=== PATIENT | male | born 1955 | race Caucasian/White ===

== ENCOUNTER 2016-10-12 16:53 | Inpatient (IN) | payer BC ==
[2016-10-12] MEDS ORDERED: Aspirin Low Dose CHEW TAB* 81 MG PO ONE (19:24)
--- NOTE | 2016-10-12 20:09 | RAD ---
INDICATION: Chest pain COMPARISON: May 06, 2016 TECHNIQUE: PA and lateral dual-energy views were obtained. FINDINGS: Bones/Soft Tissues: There are no acute bony findings. Cardiomediastinal: The cardiomediastinal silhouette is normal. Lungs: There are no infiltrates. Pleura: There are no pleural effusions. Other: None IMPRESSION: NO ACTIVE DISEASE.
[2016-10-12 20:14] LABS: Hematocrit 44 % (42-52); Hemoglobin 14.8 g/dl (14.0-18.0); Mean Corpuscular HGB Conc 33 g/dl (31-36); Mean Corpuscular Hemoglobin 30 pg (27-31); Mean Corpuscular Volume 90 fL (80-94); Mean Platelet Volume 7 um3 (7.4-10.4); Red Blood Count 4.89 10^6/ul (4.0-5.4); Red Cell Distribution Width 13 % (10.5-15); White Blood Count 9.2 10^3/ul (3.5-10.8)
[2016-10-12 20:30] LABS: Albumin 4.4 g/dL (3.2-5.2); BUN/Creatinine Ratio 40.5 (8-20); Calcium 9.6 mg/dL (8.6-10.3); EGFR African American 139.2 (>60); EGFR Non-African American 108.3 (>60); Globulin 2.8 g/dL (2-4); Magnesium 2.4 mg/dL (1.9-2.7); Potassium 4.4 mmol/L (3.5-5.0); Total Bilirubin 0.7 mg/dL (0.2-1.0); Total Protein 7.2 g/dL (6.4-8.9)
[2016-10-12 20:31] LABS: Troponin I 0.01 ng/mL (<0.04)
--- NOTE | 2016-10-12 20:52 | ED ---
Petr Powell Erika, scribed for Johnathon Jennings MD on 10/12/16 at 1926 . HPI Chest Pain - HPI Summary HPI Summary: Patient is a 60-year-old male presenting to the ED with a CC of intermittent episodes of chest pain. Patient reports he had cardiac stents placed in April 2016. On 10/02/2016, patient woke up at 03:00 for work and had intense chest pain and SOB. He had another similar episode on 10/05 while at work at [employer]. On 10/06, patient had a stress test, and Dr. Lin scheduled him for a cardiac catheterization on 10/21 based on the results. Since the stress test, episodes of chest pain and SOB have been more frequent. Each episode lasts about 3 minutes. Today, patient had two episodes - one at 03:00, and one at 15: 00 - he usually takes his medications at 04:00 and 16:00, but each time took them an hour early due to the pain. - History of Current Complaint Chief Complaint: EDChestPainROMI Time Seen by Provider: 10/12/16 19:19 Hx Obtained From: Patient Onset/Duration: Started Weeks Ago, Atraumatic, Still Present Timing: Intermittent - lasting about 3 minutes each Initial Severity: Moderate Current Severity: None Pain Intensity: 0 Pain Scale Used: 0-10 Numeric Alleviating Factor(s): Spontaneous Resolution Associated Signs and Symptoms: Positive: Shortness of Breath - Allergy/Home Medications Allergies/Adverse Reactions: Allergies Allergy/AdvReac Type Severity Reaction Status Date / Time No Known Allergies Allergy Verified 10/12/16 16:55 Home Medications: Home Medications Metoprolol Tartrate TAB* [Lopressor TAB*] 75 mg PO Q12H 10/12/16 [History Confirmed 10/12/16] PMH/Surg Hx/FS Hx/Imm Hx Endocrine/Hematology History: Denies: Hx Diabetes Cardiovascular History: Reports: Hx Angina, Hx Coronary Artery Disease, Hx Hypercholesterolemia, Hx Hypertension, Hx Myocardial Infarction - April 2016 Denies: Hx Aneurysm, Hx Angioplasty, Hx Valvular Heart Disease Respiratory History: Denies: Hx Asthma, Hx Chronic Obstructive Pulmonary Disease (COPD) GI History: Denies: Hx Cirrhosis History: Denies: Hx Acute Renal Failure, Hx Chronic Renal Failure, Hx Dialysis Sensory History: Reports: Hx Contacts or Glasses Opthamlomology History: Reports: Hx Contacts or Glasses Infectious Disease History: No Infectious Disease History: Denies: Traveled Outside the [place] in Last 30 Days - Family History Known Family History: Negative: Cardiac Disease - Social History Alcohol Use: Occasionally Hx Substance Use: No Substance Use Type: Reports: None Hx Tobacco Use: Yes Smoking Status (MU): Former Smoker Review of Systems Positive: Chest Pain Positive: Shortness Of Breath All Other Systems Reviewed And Are Negative: Yes Physical Exam Triage Information Reviewed: Yes Vital Signs On Initial Exam: Initial Vitals Temp Pulse Resp BP Pulse Ox 97.3 F 73 16 144/88 98 10/12/16 16:56 10/12/16 16:56 10/12/16 16:56 10/12/16 16:56 10/12/16 16:56 Vital Signs Reviewed: Yes Appearance: Positive: Well-Appearing, No Pain Distress Skin: Positive: Warm Head/Face: Positive: Normal Head/Face Inspection Eyes: Positive: CASSIA ENT: Positive: Hearing grossly normal Neck: Positive: Supple, Nontender Respiratory/Lung Sounds: Positive: Clear to Auscultation, Breath Sounds Present Cardiovascular: Positive: RRR Abdomen Description: Positive: Nontender, Soft Bowel Sounds: Positive: Present Musculoskeletal: Positive: Strength/ROM Intact Neurological: Positive: Alert, Oriented to Person Place, Time, Normal Gait Psychiatric: Positive: Affect/Mood Appropriate - [place] Coma Scale Coma Scale Total: 15 Diagnostics - Vital Signs Vital Signs Temp Pulse Resp BP Pulse Ox 10/12/16 19:13 64 10/12/16 19:00 59 17 115/77 95 10/12/16 18:51 56 14 96 10/12/16 18:50 120/74 10/12/16 16:56 97.3 F 73 16 144/88 98 - Laboratory Lab Results: Lab Results 10/12/16 10/12/16 10/12/16 Range/Units 20:00 20:00 20:00 WBC 9.2 (3.5-10.8) 10^3/ul RBC 4.89 (4.0-5.4) 10^6/ul Hgb 14.8 (14.0-18.0) g/dl Hct 44 (42-52) % MCV 90 (80-94) fL MCH 30 (27-31) pg MCHC 33 (31-36) g/dl RDW 13 (10.5-15) % Plt Count 297 (150-450) 10^3/ul MPV 7 L (7.4-10.4) um3 Neut % (Auto) 74.0 (38-83) % Lymph % (Auto) 17.6 L (25-47) % [place] % (Auto) 6.2 (1-9) % Eos % (Auto) 1.4 (0-6) % Baso % (Auto) 0.8 (0-2) % Absolute Neuts (auto) 6.8 (1.5-7.7) 10^3/ul Absolute Lymphs (auto) 1.6 (1.0-4.8) 10^3/ul Absolute Monos (auto) 0.6 (0-0.8) 10^3/ul Absolute Eos (auto) 0.1 (0-0.6) 10^3/ul Absolute Basos (auto) 0.1 (0-0.2) 10^3/ul Absolute Nucleated RBC 0 10^3/ul Nucleated RBC % 0 Sodium 135 (133-145) mmol/L Potassium 4.4 (3.5-5.0) mmol/L Chloride 103 (101-111) mmol/L Carbon Dioxide 25 (22-32) mmol/L Anion Gap 7 (2-11) mmol/L BUN 30 H (6-24) mg/dL Creatinine 0.74 (0.67-1.17) mg/dL Est GFR ( Amer) 139.2 (>60) Est GFR (Non-Af Amer) 108.3 (>60) BUN/Creatinine Ratio 40.5 H (8-20) Glucose 104 H (70-100) mg/dL Lactic Acid 1.3 (0.5-2.0) mmol/L Calcium 9.6 (8.6-10.3) mg/dL Magnesium 2.4 (1.9-2.7) mg/dL Total Bilirubin 0.70 (0.2-1.0) mg/dL AST 27 (13-39) U/L ALT 29 (7-52) U/L Alkaline Phosphatase 66 (34-104) U/L Troponin I 0.01 (<0.04) ng/mL Total Protein 7.2 (6.4-8.9) g/dL Albumin 4.4 (3.2-5.2) g/dL Globulin 2.8 (2-4) g/dL Albumin/Globulin Ratio 1.6 (1-3) Result Diagrams: 10/12/16 20:00 10/12/16 20:00 Lab Statement: Any lab studies that have been ordered have been reviewed, and results considered in the medical decision making process. - Radiology CXR Radiology Interpretation Completed By: Radiologist - IMPRESSION: NO ACTIVE DISEASE. - EKG 17:01 Cardiac Rate: NL - at 67 bpm EKG Rhythm: Sinus Rhythm Re-Evaluation - Re-Evaluation First Eval Change: Improved Chest Pain Course/Dx - Course Assessment/Plan: A 60 y/o M presents to the ED with a CC of intermittent episodes of chest pain associated with SOB. Episodes have been present for a few weeks but have been increasing in frequency since last week. Patient has a Hx CAD, and had a concerning stress test last week so has a cardiac catheterization scheduled for early October. EKG shows NSR. Blood work ordered. Case discussed with hospitalist who agrees to admit patient for further work up and management. - Diagnoses Provider Diagnoses: ACS (acute coronary syndrome) - Provider Notifications Discussed Care Of Patient With: Dr. Delong (hospitalist) at 19:45 agrees to admit Discharge - Discharge Plan Condition: Stable Disposition: ADMITTED TO [facility] The documentation as recorded by the Petr webb Erika accurately reflects the service I personally performed and the decisions made by , Johnathon Jennings MD.
--- NOTE | 2016-10-12 21:28 | HP ---
H&P (Free Text) History and Physical: PCP: Airam Sullivan MD Date/Time of Evaluation: 10/12/2016 CC: chest pain HPI: Mr Cordova is a 60YO male HX CAD/NSTEMI/ stent x2 to LAD & circumflex 2015 who awoke for work the around 0200 and subsequently developed moderately severe sharp non-exertional, non-radiating chest pain, light- headedness, flushing, & tunnel vision very similar to when his NSTEMI. It lasted ~1 hour before spontaneously resolving. It happened again the next day prompting a visit to Joel Lin MD interventional cardiology who performed a stress test the results of which he reportedly did not like and a cardiac catheterization was arranged for next week. Amodipine 2.5mg QD was added to his regimen and metoprolol IR was increased from 50mg BID to 75mg BID. However, today around 1500 the symptoms recurred excepting the tunnel vision again lasting for ~1hour before spontaneously resolving. He has noted the each time the symptoms occur he is ~1 hour prior his medications being due. PMedHx CAD/NSTEMI/stent x2 HTN HLD Ambulatory Orders Aspirin Low Dose CHEW TAB* [Aspirin Low Dose TAB*] 81 mg PO DAILY tab.chew Atorvastatin* [Lipitor 80 MG*] 80 mg PO 1700 #30 tab 05/08/16 Lisinopril TAB* [Prinivil TAB 5 MG*] 5 mg PO BID #60 tab 05/08/16 Metoprolol Tartrate TAB* [Lopressor TAB*] 50 mg PO Q12H #60 tab 05/08/16 Nitroglycerin TAB 0.4 MG* 0.4 mg SL Q5M PRN #25 tab 05/08/16 Ticagrelor* [Brilinta 90 MG*] 90 mg PO BID #60 tab 05/08/16 amLODIPine TAB* [Norvasc 5 mg TAB*] 2.5 mg PO DAILY #30 tab 10/06/16 Allergies No Known Allergies Allergy (Verified 10/12/16 16:55) SocHx: former smoker quit in the early 90s; no significant alcohol, no recreational drugs; 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; full code status FamHx: negative for early onset CAD/CVA/PAOD ROS: as above, otherwise reviewed and all were negative Constitutional: NAD, normally developed, well-nourished white male vitals: Vital Signs Temp 36.3 C 10/12/16 16:56 Pulse 60 10/12/16 20:00 Resp 17 10/12/16 19:00 BP 126/71 10/12/16 19:57 Pulse Ox 95 10/12/16 20:00 Intake & Output 10/11/16 10/12/16 10/12/16 23:59 11:59 23:59 Weight 79.379 kg HEENM: atraumatic; sclera/conjunctiva: non-icteric/clear; hearing: clinically intact; oropharynx: clear, mucosa moist Neck: soft tissue: non-tender/clear; thyroid: normal Pulmonary: clear to auscultation bilaterally, good aeration, no accessory muscle use CV: RR/RR, normal S1S2, no carotid bruit, no jugular venous distention, 2+ B DP/ PT, no edema Abdominal: soft, non-distended, non-tender, no rebound/guarding/rigidity, normoactive bowel sounds, no hepatosplenomegaly or masses, no costovertebral angle tenderness Musculoskeletal: general: grossly intact; gait: stable Integumental: normal appearance and texture of exposed skin Psychiatric orientation: AA&O to PPS affect: calm mood: pleasant eye contact: good content: reliable responses: timely insight: good Testing: Lab Results 10/12/16 10/12/16 10/12/16 Range/Units 20:00 20:00 20:00 WBC 9.2 (3.5-10.8) 10^3/ul RBC 4.89 (4.0-5.4) 10^6/ul Hgb 14.8 (14.0-18.0) g/dl Hct 44 (42-52) % MCV 90 (80-94) fL MCH 30 (27-31) pg MCHC 33 (31-36) g/dl RDW 13 (10.5-15) % Plt Count 297 (150-450) 10^3/ul MPV 7 L (7.4-10.4) um3 Neut % (Auto) 74.0 (38-83) % Lymph % (Auto) 17.6 L (25-47) % [place] % (Auto) 6.2 (1-9) % Eos % (Auto) 1.4 (0-6) % Baso % (Auto) 0.8 (0-2) % Absolute Neuts (auto) 6.8 (1.5-7.7) 10^3/ul Absolute Lymphs (auto) 1.6 (1.0-4.8) 10^3/ul Absolute Monos (auto) 0.6 (0-0.8) 10^3/ul Absolute Eos (auto) 0.1 (0-0.6) 10^3/ul Absolute Basos (auto) 0.1 (0-0.2) 10^3/ul Absolute Nucleated RBC 0 10^3/ul Nucleated RBC % 0 Sodium 135 (133-145) mmol/L Potassium 4.4 (3.5-5.0) mmol/L Chloride 103 (101-111) mmol/L Carbon Dioxide 25 (22-32) mmol/L Anion Gap 7 (2-11) mmol/L BUN 30 H (6-24) mg/dL Creatinine 0.74 (0.67-1.17) mg/dL Est GFR ( Amer) 139.2 (>60) Est GFR (Non-Af Amer) 108.3 (>60) BUN/Creatinine Ratio 40.5 H (8-20) Glucose 104 H (70-100) mg/dL Lactic Acid 1.3 (0.5-2.0) mmol/L Calcium 9.6 (8.6-10.3) mg/dL Magnesium 2.4 (1.9-2.7) mg/dL Total Bilirubin 0.70 (0.2-1.0) mg/dL AST 27 (13-39) U/L ALT 29 (7-52) U/L Alkaline Phosphatase 66 (34-104) U/L Troponin I 0.01 (<0.04) ng/mL Total Protein 7.2 (6.4-8.9) g/dL Albumin 4.4 (3.2-5.2) g/dL Globulin 2.8 (2-4) g/dL Albumin/Globulin Ratio 1.6 (1-3) ECG, personally reviewed: NSR rate 67, non-diagnostic ST elevation V2 CXR, personally reviewed: IMPRESSION: NO ACTIVE DISEASE. Impression: 60M HX CAD/NSTEMI/stent x2 04/2016 presenting with chest pain for r/ o ACS DIAGNOSIS & PLAN Primary chest pain r/o ACS : telemetry : continue aspirin & ticagrelor : trend troponin : aspirin (given in ED) : metoprolol (took evening dose at home) : 1/2" nitropaste : supplemental oxygen : check lipid profile in AM : consult Joel Lin MD interventional cardiology in AM : supportive care Secondary HTN : continue metoprolol IR & amlodipine once reconciled HLD : continue simvastatin once reconciled Admission Rational: inpatient for chest pain r/o ACS, abnormal stress test in patient at risk of sudden syndrome; inappropriate for outpatient status DVTp: heparin SQ Code Status: full
[2016-10-12] MEDS ORDERED: Acetaminophen TAB* 325 MG PO PRN (22:22)
[2016-10-12] MEDS ORDERED: Ondansetron INJ* 2 MG/ML VIAL IV PRN (22:22)
[2016-10-12] MEDS ORDERED: Albuterol 2.5 MG/3 ML NEB.SOL* (0.083%) INH PRN (22:22)
[2016-10-12] MEDS ORDERED: Morphine INJ* 2 MG/ML 1 ML SYRINGE IV PRN (22:22)
[2016-10-12] MEDS ORDERED: CMCS: Melatonin (NF) 3 MG TAB PO PRN (22:22)
[2016-10-12] MEDS ORDERED: NS 0.9% 1000 ML* 1,000 ML IV SCH (22:30)
[2016-10-12] MEDS: Nitroglycerin 2% OINT* 1 GM PAK TOPICAL SCH (23:49)
[2016-10-13] MEDS: Nitro Patch/OINT Remove PATCH OFF SCH (05:43)
[2016-10-13] MEDS: Omeprazole CAP* 20 MG PO SCH (05:45)
[2016-10-13] MEDS: Nitroglycerin 2% OINT* 1 GM PAK TOPICAL SCH (05:47)
[2016-10-13] MEDS ORDERED: Heparin VIAL(*) 5000 UNITS/ML VIAL (FIVE THOUSAND) SUBCUT SCH (06:00)
[2016-10-13] MEDS: Aspirin Low Dose CHEW TAB* 81 MG PO SCH (08:05)
[2016-10-13] MEDS: Ticagrelor* 90 MG TAB PO SCH ×2 (08:06→21:06)
[2016-10-13] MEDS: Docusate CAP* 100 MG PO SCH ×2 (08:07→21:06)
[2016-10-13] MEDS ORDERED: Aspirin TAB* 325 MG PO SCH (09:00)
[2016-10-13] MEDS: Metoprolol Tartrate TAB* 50 mg PO SCH ×2 (10:09→22:33)
[2016-10-13] MEDS ORDERED: NS 0.9% 1000 ML* 1,000 ML IV SCH ×2 (11:30→15:00)
--- NOTE | 2016-10-13 11:59 | PN ---
Subjective Date of Service: 10/13/16 Interval History: Pt has had no CP since admission. He is NPO in anticipation of cath Objective Active Medications: Acetaminophen (Tylenol Tab*) 650 mg PO Q6H PRN PRN Reason: FEVER/PAIN Last Admin: 10/13/16 08:05 Dose: 650 mg Albuterol (Ventolin 2.5 Mg/3 Ml Neb.Genie*) 2.5 mg INH Q2H PRN PRN Reason: SOB/WHEEZING Amlodipine Besylate (Norvasc Tab*) 2.5 mg PO DAILY [facility] Aspirin (Aspirin Low Dose Tab*) 81 mg PO DAILY [facility] Last Admin: 10/13/16 08:05 Dose: 81 mg Atorvastatin Calcium (Lipitor*) 80 mg PO 1700 [facility] Docusate Sodium (Colace Cap*) 200 mg PO BID [facility] Last Admin: 10/13/16 08:07 Dose: Not Given Sodium Chloride (Ns 0.9% 1000 Ml*) 1,000 mls @ 100 mls/hr IV .per rate [facility] Melatonin (Melatonin (Nf)) 3 mg PO BEDTIME PRN; Protocol PRN Reason: Sleep Metoprolol Tartrate (Lopressor Tab*) 75 mg PO Q12H [facility] Last Admin: 10/13/16 10:09 Dose: 75 mg Morphine Sulfate (Morphine Inj (Syringe)*) 2 mg IV Q4H PRN PRN Reason: PAIN - MILD Omeprazole (Prilosec Cap*) 20 mg PO DAILY@0600 [facility] Last Admin: 10/13/16 05:45 Dose: 20 mg Ondansetron HCl (Zofran Inj*) 4 mg IV Q6H PRN PRN Reason: NAUSEA Pharmacy Profile Note (Nitro Patch/Oint Remove*) 1 note PATCH OFF 0500 [facility] Last Admin: 10/13/16 05:43 Dose: 0.5 patch Ticagrelor (Brilinta*) 90 mg PO BID [facility] Last Admin: 10/13/16 08:06 Dose: 90 mg Vital Signs 10/12/16 10/12/16 10/12/16 21:44 22:00 22:16 Temperature 98.4 F Pulse Rate 64 59 61 Respiratory 16 Rate Blood Pressure 99/61 121/75 150/67 (mmHg) O2 Sat by Pulse 95 95 97 Oximetry 05/30/17 05/30/17 05/30/17 04:05 07:37 09:00 Temperature 97.9 F 97.7 F Pulse Rate 59 61 60 Respiratory 20 18 16 Rate Blood Pressure 118/63 130/66 (mmHg) O2 Sat by Pulse 94 95 96 Oximetry Oxygen Devices in Use Now: None Appearance: 60 yo M in nAD, aAOx3 Eyes: No Scleral Icterus, PERRLA Ears/Nose/Mouth/Throat: NL Teeth, Lips, Gums, Mucous Membranes Moist Neck: NL Appearance and Movements; NL JVP, Trachea Midline Respiratory: Symmetrical Chest Expansion and Respiratory Effort, Clear to Auscultation Cardiovascular: NL Sounds; No Murmurs; No JVD, RRR Abdominal: NL Sounds; No Tenderness; No Distention Lymphatic: No Cervical Adenopathy Extremities: No Edema, No Clubbing, Cyanosis Skin: No Rash or Ulcers, No Nodules or Sclerosis Neurological: Alert and Oriented x 3, NL Muscle Strength and Tone Result Diagrams: 10/12/16 20:00 10/12/16 20:00 Additional Lab and Data: Lab Results 10/12/16 10/12/16 10/12/16 Range/Units 20:00 20:00 20:00 WBC 9.2 (3.5-10.8) 10^3/ul RBC 4.89 (4.0-5.4) 10^6/ul Hgb 14.8 (14.0-18.0) g/dl Hct 44 (42-52) % MCV 90 (80-94) fL MCH 30 (27-31) pg MCHC 33 (31-36) g/dl RDW 13 (10.5-15) % Plt Count 297 (150-450) 10^3/ul MPV 7 L (7.4-10.4) um3 Neut % (Auto) 74.0 (38-83) % Lymph % (Auto) 17.6 L (25-47) % [place] % (Auto) 6.2 (1-9) % Eos % (Auto) 1.4 (0-6) % Baso % (Auto) 0.8 (0-2) % Absolute Neuts (auto) 6.8 (1.5-7.7) 10^3/ul Absolute Lymphs (auto) 1.6 (1.0-4.8) 10^3/ul Absolute Monos (auto) 0.6 (0-0.8) 10^3/ul Absolute Eos (auto) 0.1 (0-0.6) 10^3/ul Absolute Basos (auto) 0.1 (0-0.2) 10^3/ul Absolute Nucleated RBC 0 10^3/ul Nucleated RBC % 0 Sodium 135 (133-145) mmol/L Potassium 4.4 (3.5-5.0) mmol/L Chloride 103 (101-111) mmol/L Carbon Dioxide 25 (22-32) mmol/L Anion Gap 7 (2-11) mmol/L BUN 30 H (6-24) mg/dL Creatinine 0.74 (0.67-1.17) mg/dL Est GFR ( Amer) 139.2 (>60) Est GFR (Non-Af Amer) 108.3 (>60) BUN/Creatinine Ratio 40.5 H (8-20) Glucose 104 H (70-100) mg/dL Lactic Acid 1.3 (0.5-2.0) mmol/L Calcium 9.6 (8.6-10.3) mg/dL Magnesium 2.4 (1.9-2.7) mg/dL Total Bilirubin 0.70 (0.2-1.0) mg/dL AST 27 (13-39) U/L ALT 29 (7-52) U/L Alkaline Phosphatase 66 (34-104) U/L Troponin I 0.01 (<0.04) ng/mL Total Protein 7.2 (6.4-8.9) g/dL Albumin 4.4 (3.2-5.2) g/dL Globulin 2.8 (2-4) g/dL Albumin/Globulin Ratio 1.6 (1-3) Assess/Plan/Problems-Billing Assessment: 60 yo M with h/o known CAD (STEMI in 04/2016-cath + stents) who had been experiencing intermittent CP and had an outpatient stress test positive for anginal CP and EKG changes on 10/06/16 presents with recurrence of CP - Patient Problems (1) Angina at rest Comment: Pt is CP free. Troponins have been neg and EKG unchanged . Awaiting Dr. Garcia's recommendations NPO for possible cath Cont ASA/Brilinta/BB/Norvasc. Holding ACEI for now. (2) Dyslipidemia Comment: cont Lipitor lipid profile pending (3) DVT prophylaxis Comment: low risk Status and Disposition: Pt is on OBV, may need to be placed inpatient depending on cath results
[2016-10-13] MEDS ORDERED: Nitroglycerin TAB 0.4 MG* 0.4 MG TAB SL PRN ×2 (12:01→14:58)
[2016-10-13] MEDS ORDERED: Heparin(*) 1000 UNIT/ML 10 ML VIAL CATH LAB IV ONE (12:57)
[2016-10-13] MEDS ORDERED: fentaNYL* 50 MCG/ML 2 ML VIAL (100 MCG VIAL) ONE (12:57)
[2016-10-13] MEDS ORDERED: VERAPAMIL 2.5 MG/ML 4 ML VIAL ONE (12:57)
[2016-10-13] MEDS ORDERED: Midazolam* 1 MG/ML 5 ML VIAL (5 MG) ONE (12:57)
[2016-10-13] MEDS ORDERED: Iohexol 350 (CONTRAST) 200 ML MDV IV ONE ×2 (12:57→14:22)
[2016-10-13] MEDS ORDERED: Heparin 2 UNITS/ML IVPREMIX* 2,000 ML IV ONE (12:58)
[2016-10-13] MEDS ORDERED: nitroGLYCERIN DRIP* 250 ML ONE (12:58)
[2016-10-13] MEDS ORDERED: Lidocaine 1% INJ* 10 MG/ML 30 ML SDV ONE (12:58)
--- NOTE | 2016-10-13 13:00 | CONS ---
INTERVENTIONAL CARDIOLOGY CONSULT NOTE: DATE OF CONSULT: 10/13/16 PRIMARY CARE PHYSICIAN: Dr. Sullivan. BIODIESEL PLANT MANAGER: Dr. Lin. HISTORY OF PRESENT ILLNESS: A 60-year-old male with previous non-ST elevation infarct, treated with two-vessel stenting, admitted with unstable angina. He presented 05/05/16 with an acute coronary syndrome with peak troponin of 3.67 , had high grade mid LAD stenosis and moderately severe circumflex stenosis. The LAD was stented was a 3 x 20, the circumflex with 2.75 x 32 drug-eluting stent. He also had a moderate to very proximal LAD diagonal bifurcation lesion which was thought not to be flow limiting. EF by echo was 45 to 50. He subsequently had a stress test in June which was read as low risk, was done to assess the functional significance of the proximal LAD diagonal stenosis. He was continued with medical management. About 11 days ago, he started to have the same type of chest discomfort he had in April but lasting only a few minutes with essentially spontaneous resolution but followed by up to an hour of not feeling well. He had a stress test on 10/06/16 where he had chest discomfort in stage III, accompanied by ischemic ST changes in the setting of hypertension. Imaging was not performed. His beta-suzan dose was increased, Norvasc added and he was scheduled for an elective cath for next week. However in spite of increased medical management with 2 antianginal agents, he has continued to have class IV angina. Yesterday, he had the same symptoms lasting only a few minutes with a prolonged subsequent feeling of not feeling normal. He was admitted. He has been pain free here. He has not had any side effects from his meds, he is tolerating his aspirin and Brilinta and his statin. PAST MEDICAL HISTORY: Hypertension and hyperlipidemia. PREHOSPITAL MEDICATIONS: 1. Aspirin 81 mg daily. 2. Lipitor 80 mg daily. 3. Lisinopril 5 mg b.i.d. 4. Lopressor 50 q.12. 5. P.r.n. nitroglycerin. 6. Brilinta 90 daily. 7. Norvasc 2.5 mg daily. ALLERGIES: None. FAMILY HISTORY: Negative for premature coronary disease. SOCIAL HISTORY: He is a nonsmoker. PHYSICAL EXAM: He is pain free. He looks well. His blood pressure is 130/66, heart rate 60s, sinus rhythm. His lungs are clear. Neck is unremarkable without JVD. Carotids are normal without bruits. No thyromegaly. HEENT is unremarkable without xanthelasma, scleral injection or jaundice. EOMs are normal. Cranial nerves grossly intact. Cardiac Exam: Chest wall not tender, normal heart sounds, no gallops, no murmurs or rubs. Abdomen is soft, nontender , no bruit, I cannot feel the aorta or liver edge. Radial, femoral and pedal pulses are normal. He has no cyanosis, clubbing or edema. Skin is warm and perfused. DIAGNOSTIC STUDIES/LAB DATA: His CBC is normal as is BMP. Lipid profile is excellent. His troponins are 0. EKG is markedly improved from post infarct with resolution of the deep precordial T- wave inversion. IMPRESSION: Unstable angina. His history is identical to what he had with his presentation. The differential is between early restenosis versus progression of disease of the proximal LAD diagonal bifurcation lesion which may also involve the very distal left main. Because of its very close proximity to the left main and the large caliber diagonal this is a high risk bifurcation lesion , and if it requires revascularization, it should be done at a center that has cardiac surgery onsite. I have discussed this with him. PLAN: The plan is for radial access diagnostic cath, if needed FFR evaluation of the diagonal and LAD. His anatomy will dictate whether he is appropriate for heart center. He understands that he may need to be referred elsewhere for proximal LAD intervention. We have discussed the procedure risks and benefits. He has no questions, wants to proceed. Thank you for the consultation. CC: Dr. Lin; Dr. Sullivan* [id number]/[facility] #: [id number] [facility]
[2016-10-13 13:58] LABS: HDL Cholesterol 42.4 mg/dL
[2016-10-13] MEDS ORDERED: Adenosine* 3 MG/ML VIAL ONE (14:47)
[2016-10-13] MEDS ORDERED: Atorvastatin* 80 MG TAB PO SCH (17:00)
[2016-10-14] MEDS: Omeprazole CAP* 20 MG PO SCH (05:30)
[2016-10-14] MEDS: Nitro Patch/OINT Remove PATCH OFF SCH (05:35)
[2016-10-14 06:02] LABS: BUN/Creatinine Ratio 20.5 (8-20); EGFR African American 141.4 (>60); Potassium 4.2 mmol/L (3.5-5.0)
[2016-10-14] MEDS ORDERED: amLODIPine TAB* 5 MG PO SCH (09:00)
[2016-10-14] MEDS: Ticagrelor* 90 MG TAB PO SCH (09:34)
[2016-10-14] MEDS: Aspirin Low Dose CHEW TAB* 81 MG PO SCH (09:34)
[2016-10-14] MEDS: Docusate CAP* 100 MG PO SCH (09:34)
[2016-10-14] MEDS: Metoprolol Tartrate TAB* 50 mg PO SCH (09:35)
--- NOTE | 2016-10-14 12:31 | DCNOTE ---
Patient seen this morning. No events overnight. Denies any chest pain, SOB. R arm is not bothersome. Eating and drinking well. On exam, RRR, s1 and s2 present, no m/g/r, abd soft, NTND, BS+, no LE edema S/P [address] Roman on 10/13, doing well today. Plan to discharge home with outpatient PCP and Cardiology follow-up.
[2016-10-14 13:41] VITALS: BP 125/45
--- NOTE | 2016-10-15 01:06 | DS ---
DISCHARGE SUMMARY: DATE OF ADMISSION: 10/12/16 DATE OF DISCHARGE: 10/14/16 PRIMARY CARE PHYSICIAN: Dr. Sullivan. PRINCIPAL DISCHARGE DIAGNOSES: 1. Obstructive coronary artery disease. 2. Angina. SECONDARY DIAGNOSES: 1. Coronary artery disease, status post stents x2, April 2016. 2. Hypertension. 3. Hyperlipidemia. CONSULTANTS DURING HOSPITALIZATION: Dr. Phani Roman, Interventional Cardiology. DISCHARGE MEDICATION REGIMEN: 1. Amlodipine 2.5 mg by mouth daily. 2. Ticagrelor 90 mg by mouth 2 times daily. 3. Aspirin 81 mg by mouth daily. 4. Lisinopril 5 mg by mouth 2 times daily. 5. Metoprolol tartrate 75 mg by mouth q.12 hours. 6. Atorvastatin 80 mg by mouth nightly. 7. Nitroglycerin 0.4 mg sublingual every 5 minutes as needed for chest pain. STUDIES DONE DURING HOSPITALIZATION: Chest x-ray, impression: No active disease. HISTORY OF PRESENT ILLNESS AND HOSPITAL SUMMARY: Please see the full history and physical by Dr. Yomi Delong for full details. Briefly, Mr. Cordova is a 60- year-old male with recent NSTEMI and stents x2 in April 2016, who presented to the hospital with chest pain and symptoms very similar to his previous study. The patient had a recent stress test ordered by Dr. Lin as an outpatient due to the symptoms and was scheduled for a cardiac catheterization the following week; however, due to his persistent symptoms, the patient came to the hospital for further evaluation. The patient was seen by Dr. Roman and decision was made to proceed with cardiac catheterization. His troponins remained negative throughout the hospitalization. He was taken to the liaison inspection laboratory assistant on 10/13/2016. The final report for this catheterization is not available, but the patient did receive one stent to the proximal diagonal and one stent to the proximal LAD. He tolerated the procedure well. No arrhythmias were noted on the patient's telemetry monitoring. Through the following day, EKGs remained stable. The patient was discharged home and will follow up with his PCP and with Dr. Lin as an outpatient. TIME SPENT: Total time spent on this discharge, 45 minutes. This is a summary of the hospitalization. Please see the full medical record for further details. CC: Dr. Sullivan; Dr. Lin* [id number]/[facility] #: [id number] [facility]
== END 2016-10-14 16:00 | disposition home or self-care (01) | DRG 175 ==
LOC: ED 16:53 → MEDTELE 21:12 → ICU 10-13 15:06 → OBSVTOIN 10-13 15:22
PROVIDERS: ADMIT Hospitalist; ATTEND Hospitalist
PROC: B2111ZZ Fluoroscopy of Multiple Coronary Arteries using Low Osmolar Contrast (ICD-10-PCS; 2016-10-13)
PROC: 027035Z Dilation of Coronary Artery, One Artery with Two Drug-eluting Intraluminal Devices, Percutaneous Approach (ICD-10-PCS; 2016-10-13)
PROC: 4A033BC Measurement of Arterial Pressure, Coronary, Percutaneous Approach (ICD-10-PCS; 2016-10-13)
PROC: 4A023N7 Measurement of Cardiac Sampling and Pressure, Left Heart, Percutaneous Approach (ICD-10-PCS; principal; 2016-10-13 12:45)
DX: I25.119 Atherosclerotic heart disease of native coronary artery with unspecified angina pectoris (principal); I10 Essential (primary) hypertension; Z95.5 Presence of coronary angioplasty implant and graft; E78.5 Hyperlipidemia, unspecified; Z79.82 Long term (current) use of aspirin; Z87.891 Personal history of nicotine dependence; I25.2 Old myocardial infarction; R40.2412 Glasgow coma scale score 13-15, at arrival to emergency department
CPT/HCPCS: 36415; 71020; 80048; 80053; 80061; 83036; 83605; 83735; 84484; 85025; 86141; 93005; 93454; A9270-GY; C1725; C1769; C1876; C1887; C9600-LD; J0153; J1644; J2001; J2250; J2270; J3010

== ENCOUNTER 2017-05-29 19:00 | Emergency (ER) | payer BC ==
[2017-05-29 21:10] LABS: ABS Basophils 0.1 10^3/ul (0-0.2); ABS Eosinophils 0.1 10^3/ul (0-0.6); ABS Lymphocytes 1.7 10^3/ul (1.0-4.8); ABS Monocytes 0.6 10^3/ul (0-0.8); ABS Neutrophils 5.7 10^3/ul (1.5-7.7); ABS Nucleated RBC 0 10^3/ul; Eosinophil % 1.8 % (0-6); Hematocrit 41 % (42-52); Lymphocyte % 20.6 % (25-47); Mean Corpuscular HGB Conc 34 g/dl (31-36); Mean Corpuscular Hemoglobin 32 pg (27-31); Mean Corpuscular Volume 92 fL (80-94); Mean Platelet Volume 7 um3 (7.4-10.4); Nucleated Red Blood Cells % 0.1; Platelet Count 326 10^3/ul (150-450); Red Blood Count 4.44 10^6/ul (4.0-5.4); Red Cell Distribution Width 13 % (10.5-15); White Blood Count 8.1 10^3/ul (3.5-10.8)
[2017-05-29 21:11] LABS: Urine Appearance Clear; Urine Blood Negative (Negative); Urine Color Colorless; Urine Ketones Negative (Negative); Urine Protein Negative (Negative); Urine Specific Gravity 1.003 (1.010-1.030); Urine Urobilinogen Negative (Negative)
[2017-05-29 21:27] LABS: EGFR Non-African American 111.4 (>60)
--- NOTE | 2017-05-29 21:43 | RAD ---
Indication: Upper chest pain. Single frontal view of the chest performed at 2105 hours was reviewed. Comparison is made with previous exam dated October 12, 2016. No mediastinal shift is noted. Heart is of normal size and configuration. Lung sands appear clear. IMPRESSION: NO ACTIVE CARDIOPULMONARY DISEASE IS NOTED.
[2017-05-29] MEDS ORDERED: Ketorolac INJ* 60 MG/2 ML VIAL IM ONE (21:51)
[2017-05-29] MEDS ORDERED: Cyclobenzaprine TAB* 10 MG PO ONE (21:51)
[2017-05-29 23:13] VITALS: BP 110/72
--- NOTE | 2017-05-29 23:52 | ED ---
Joyce Powell Julia, scribed for Suzie Ruelas MD on 05/29/17 at 2328 . Back Pain - HPI Summary HPI Summary: This patient is a 61 year old M presenting to [facility] with a chief complaint of back pain near R shoulder with cramping and spasms for the past week. Patient has had chronic back pain for several months but this is unusual for him. Patient reports SOB that is currently better. Patient denies cough headache, blurry or double vision, chest pain, abdominal pain, bloody urine or stool, rash , edema, anxiety, or depression. The patient rates the pain 4/10 in severity. Symptoms aggravated by arm movement and deep breaths. Symptoms alleviated by nothing. - History of Current Complaint Chief Complaint: EDBackInjuryPain Stated Complaint: BACK PAIN Time Seen by Provider: 05/29/17 19:37 Hx Obtained From: Patient Onset/Duration: Lasting Weeks Onset/Duration: Started Weeks Ago, Still Present Timing: Constant Pain Intensity: 4 Pain Scale Used: 0-10 Numeric Character: Spasmodic Aggravating Symptom(s): Movement, Other - deep breaths Alleviating Symptom(s): Nothing Associated Signs And Symptoms: Positive: Other - SOB - Allergies/Home Medications Allergies/Adverse Reactions: Allergies Allergy/AdvReac Type Severity Reaction Status Date / Time No Known Allergies Allergy Verified 04/20/17 14:03 PMH/Surg Hx/FS Hx/Imm Hx Endocrine/Hematology History: Denies: Hx Diabetes Cardiovascular History: Reports: Hx Angina, Hx Coronary Artery Disease, Hx Hypercholesterolemia, Hx Hypertension - ON MEDS, Hx Myocardial Infarction - April 2016 Denies: Hx Aneurysm, Hx Angioplasty, Hx Pacemaker/ICD, Hx Valvular Heart Disease Respiratory History: Denies: Hx Asthma, Hx Chronic Obstructive Pulmonary Disease (COPD) GI History: Denies: Hx Cirrhosis History: Denies: Hx Acute Renal Failure, Hx Chronic Renal Failure, Hx Dialysis Sensory History: Reports: Hx Contacts or Glasses, Hx Hearing Problem Denies: Hx Hearing Aid Opthamlomology History: Reports: Hx Contacts or Glasses Psychiatric History: Reports: Hx Depression - (not currently) Denies: Hx Panic Disorder - Surgical History Surgery Procedure, Year, and Place: Cardiac Cath/stents placed X2 (04/2016, 2016), Broken right knee repaired (as a child) Infectious Disease History: No Infectious Disease History: Denies: Traveled Outside the [place] in Last 30 Days - Family History Known Family History: Negative: Cardiac Disease - Social History Alcohol Use: Daily Hx Substance Use: No Substance Use Type: Reports: None Hx Tobacco Use: Yes Smoking Status (MU): Former Smoker Type: Cigarettes Amount Used/How Often: 1.5 ppd Have You Smoked in the Last Year: No Review of Systems Negative: Chest Pain Positive: Shortness Of Breath. Negative: Cough Gastrointestinal: Negative - bloody stool Negative: Abdominal Pain Negative: hematuria Negative: Edema Negative: Rash Neurological: Negative - blurry or double vision Negative: Headache Negative: Anxious, Depressed All Other Systems Reviewed And Are Negative: No Physical Exam - Summary Physical Exam Summary: Appearance: Alert, conversive, nontoxic appearing Skin: Warm, dry, no mottling, no rashes, no contusions HEENT: EOMI, PERRL, moist mucous membranes Neck: No masses on the neck, supple Respiratory: Rhonchi to right posterior lobe, breath sounds present, no rales, no rhonchi, no wheezes Cardiovascular: RRR, pulses are symmetrical in both lower and upper extremities Abdomen: Soft, non-tender Bowel Sounds: Present Musculoskeletal: No CVA tenderness, no obvious deformity, moving all extremities in a grossly normal manner Neurological: A&Ox3, CN II-XII Intact, moving all extremities symmetrically Psychiatric: Normal affect and mood Triage Information Reviewed: Yes Vital Signs On Initial Exam: Initial Vitals Temp Pulse Resp BP Pulse Ox 97.6 F 62 16 109/68 96 05/29/17 19:06 05/29/17 19:06 05/29/17 19:06 05/29/17 19:06 05/29/17 19:06 Vital Signs Reviewed: Yes Diagnostics - Vital Signs Vital Signs Temp Pulse Resp BP Pulse Ox 05/29/17 23:12 97.2 F 60 16 110/72 100 05/29/17 20:00 56 16 101/63 92 05/29/17 19:54 58 10 94 05/29/17 19:52 101/64 05/29/17 19:06 97.6 F 62 16 109/68 96 - Laboratory Lab Results: Lab Results 05/29/17 05/29/17 05/29/17 Range/Units 20:55 20:55 20:55 WBC 8.1 (3.5-10.8) 10^3/ul RBC 4.44 (4.0-5.4) 10^6/ul Hgb 14.0 (14.0-18.0) g/dl Hct 41 L (42-52) % MCV 92 (80-94) fL MCH 32 H (27-31) pg MCHC 34 (31-36) g/dl RDW 13 (10.5-15) % Plt Count 326 (150-450) 10^3/ul MPV 7 L (7.4-10.4) um3 Neut % (Auto) 69.7 (38-83) % Lymph % (Auto) 20.6 L (25-47) % Andrews % (Auto) 7.3 (1-9) % Eos % (Auto) 1.8 (0-6) % Baso % (Auto) 0.6 (0-2) % Absolute Neuts (auto) 5.7 (1.5-7.7) 10^3/ul Absolute Lymphs (auto) 1.7 (1.0-4.8) 10^3/ul Absolute Monos (auto) 0.6 (0-0.8) 10^3/ul Absolute Eos (auto) 0.1 (0-0.6) 10^3/ul Absolute Basos (auto) 0.1 (0-0.2) 10^3/ul Absolute Nucleated RBC 0 10^3/ul Nucleated RBC % 0.1 D-Dimer, Quantitative 206 (Less Than 230) ng/mL Sodium 136 (133-145) mmol/L Potassium 3.8 (3.5-5.0) mmol/L Chloride 104 (101-111) mmol/L Carbon Dioxide 22 (22-32) mmol/L Anion Gap 10 (2-11) mmol/L BUN 17 (6-24) mg/dL Creatinine 0.72 (0.67-1.17) mg/dL Est GFR ( Amer) 143.2 (>60) Est GFR (Non-Af Amer) 111.4 (>60) BUN/Creatinine Ratio 23.6 H (8-20) Glucose 103 H (70-100) mg/dL Calcium 9.2 (8.6-10.3) mg/dL Magnesium 2.2 (1.9-2.7) mg/dL Total Bilirubin 0.50 (0.2-1.0) mg/dL AST 27 (13-39) U/L ALT 28 (7-52) U/L Alkaline Phosphatase 58 (34-104) U/L Troponin I 0.00 (<0.04) ng/mL Total Protein 6.8 (6.4-8.9) g/dL Albumin 4.0 (3.2-5.2) g/dL Globulin 2.8 (2-4) g/dL Albumin/Globulin Ratio 1.4 (1-3) TSH 1.29 (0.34-5.60) mcIU/mL Urine Color Urine Appearance Urine pH (5-9) Ur Specific [place] (1.010-1.030) Urine Protein (Negative) Urine Ketones (Negative) Urine Blood (Negative) Urine Nitrate (Negative) Urine Bilirubin (Negative) Urine Urobilinogen (Negative) Ur Leukocyte Esterase (Negative) Urine Glucose (Negative) 05/29/17 Range/Units 20:55 WBC (3.5-10.8) 10^3/ul RBC (4.0-5.4) 10^6/ul Hgb (14.0-18.0) g/dl Hct (42-52) % MCV (80-94) fL MCH (27-31) pg MCHC (31-36) g/dl RDW (10.5-15) % Plt Count (150-450) 10^3/ul MPV (7.4-10.4) um3 Neut % (Auto) (38-83) % Lymph % (Auto) (25-47) % Andrews % (Auto) (1-9) % Eos % (Auto) (0-6) % Baso % (Auto) (0-2) % Absolute Neuts (auto) (1.5-7.7) 10^3/ul Absolute Lymphs (auto) (1.0-4.8) 10^3/ul Absolute Monos (auto) (0-0.8) 10^3/ul Absolute Eos (auto) (0-0.6) 10^3/ul Absolute Basos (auto) (0-0.2) 10^3/ul Absolute Nucleated RBC 10^3/ul Nucleated RBC % D-Dimer, Quantitative (Less Than 230) ng/mL Sodium (133-145) mmol/L Potassium (3.5-5.0) mmol/L Chloride (101-111) mmol/L Carbon Dioxide (22-32) mmol/L Anion Gap (2-11) mmol/L BUN (6-24) mg/dL Creatinine (0.67-1.17) mg/dL Est GFR ( Amer) (>60) Est GFR (Non-Af Amer) (>60) BUN/Creatinine Ratio (8-20) Glucose (70-100) mg/dL Calcium (8.6-10.3) mg/dL Magnesium (1.9-2.7) mg/dL Total Bilirubin (0.2-1.0) mg/dL AST (13-39) U/L ALT (7-52) U/L Alkaline Phosphatase (34-104) U/L Troponin I (<0.04) ng/mL Total Protein (6.4-8.9) g/dL Albumin (3.2-5.2) g/dL Globulin (2-4) g/dL Albumin/Globulin Ratio (1-3) TSH (0.34-5.60) mcIU/mL Urine Color Colorless Urine Appearance Clear Urine pH 6.0 (5-9) Ur Specific [place] 1.003 L (1.010-1.030) Urine Protein Negative (Negative) Urine Ketones Negative (Negative) Urine Blood Negative (Negative) Urine Nitrate Negative (Negative) Urine Bilirubin Negative (Negative) Urine Urobilinogen Negative (Negative) Ur Leukocyte Esterase Negative (Negative) Urine Glucose Negative (Negative) Result Diagrams: 05/29/17 20:55 05/29/17 20:55 Lab Statement: Any lab studies that have been ordered have been reviewed, and results considered in the medical decision making process. - Radiology CXR Radiology Interpretation Completed By: Radiologist - NO ACTIVE CARDIOPULMONARY DISEASE IS NOTED. ED Physician has reviewed this report. - EKG 19:42 Cardiac Rate: Bradycardia EKG Rhythm: Sinus Bradycardia - at 58 BPM EKG Interpretation: normal QRS and QTC and nonspecific changes in inferior leads Back Pain Course/Dx - Course Course Of Treatment: pt's ekg nl. trop, d-dimer and remainder of labs normal. pt's cxr shows no acute findings. pt's pain is not consistent with acs. pt was given toradol and flexeril with a rx. pt discharged home, given work excuse and encouraged to f/u with pcp. - Diagnoses Provider Diagnoses: Back pain Discharge - Discharge Plan Condition: Stable Disposition: HOME Prescriptions: Cyclobenzaprine TAB* [Flexeril 10 MG TAB*] 10 mg PO TID PRN #20 tab PRN Reason: Pain - Mild To Moderate Patient Education Materials: Muscle Strain (ED) Forms: *Work Release Referrals: Brannon Sullivan MD [Primary Care Provider] - Additional Instructions: take tylenol and motrin for pain. Take the flexeril as instructed. Return if worse or any new symptoms. It is important to follow up with your primary care physician. The documentation as recorded by the Joyce webb Julia accurately reflects the service I personally performed and the decisions made by , Suzie Ruelas MD.
== END 2017-05-29 23:13 | disposition home or self-care (01) ==
LOC: ED 19:00
DX: M54.9 Dorsalgia, unspecified (principal); R06.02 Shortness of breath; Z87.891 Personal history of nicotine dependence
CPT/HCPCS: 36415; 71045; 80053; 81003; 83735; 84443; 84484; 85025; 85379; 93005; 96372; 99282; A9270-GY; J1885